=== PATIENT | female | born 1940 | race Two or more races ===

== ENCOUNTER 2016-05-11 09:31 | Inpatient (IN) | payer MEDICARE, OTHER ==
[~2016-05-11] VITALS: Ht 147.3 cm; Wt 67.6 kg
[2016-05-11 10:13] LABS: BASOPHILS # (AUTO) 0.1 /CMM (0.0-0.2); BASOPHILS % (AUTO) 1.2 % (0.0-2.0); DIFF TOTAL % 100 %; EOSINOPHILS # (AUTO) 0.1 /CMM (0.0-0.7); HEMATOCRIT 28 % (33-45); HEMOGLOBIN 9.4 g/dL (11.5-14.8); LYMPHOCYTES # (AUTO) 1.5 /CMM (0.8-4.8); LYMPHOCYTES % (AUTO) 16.1 % (20.0-44.0); MEAN CORPUSCULAR HEMOGLOBIN 38 PG (26.0-33.0); MEAN CORPUSCULAR HGB CONC 33 g/dl (31.0-36.0); MEAN CORPUSCULAR VOLUME 114 fL (82-100); MONOCYTES # (AUTO) 0.8 /CMM (0.1-1.30); MONOCYTES % (AUTO) 8.4 % (2.0-12.0); NEUTROPHILS # (AUTO) 6.8 /CMM (1.8-8.9); NEUTROPHILS % (AUTO) 73.3 % (43.0-81.0); PLATELET COUNT (AUTO) 120 /CMM (150-450); RED BLOOD CELL COUNT(AUTO) 2.48 MIL/uL (4.0-5.2); WHITE BLOOD COUNT (AUTO) 9.3 K/uL (4.3-11.0)
[2016-05-11 10:16] LABS: KETONES,URINE Negative (NEGATIVE); LEUKOCYTE ESTERASE ,URINE Small (NEGATIVE)
[2016-05-11 10:18] LABS: ANION GAP 15 (5-14); CALCIUM, SERUM 7.8 mg/dL (8.5-10.1); CARBON DIOXIDE 24 mmol/L (21-32); CHLORIDE 102 mmol/L (98-107); GLUCOSE 114 mg/dL (74-106); POTASSIUM 4.2 mmol/L (3.5-5.1); SODIUM SERUM 137 mmol/L (136-145); UREA NITROGEN, BLOOD 41 mg/dL (7-18)
[2016-05-11 10:18] LABS: ADD UA MICROSCOPIC YES
[2016-05-11 10:19] LABS: ADD URINE CULTURE NO
[2016-05-11 10:24] LABS: ALANINE AMINOTRANSFERASE 24 U/L (12-78); ALBUMIN 2.1 g/dL (3.4-5.0); ASPARTATE AMINOTRANSFERASE 61 U/L (15-37); BILIRUBIN,TOTAL 7.9 mg/dL (0.2-1.0); INDIRECT BILIRUBIN 2.9 mg/dL (0.0-1.1); TOTAL PROTEIN, SERUM 6.9 g/dL (6.4-8.2)
[2016-05-11 10:28] LABS: TROPONIN I < 0.017 ng/mL (0.00-0.056)
[2016-05-11 10:29] LABS: INR 1.57 (0.87-1.13); PROTHROMBIN TIME 16.5 SECS (9.5-12.7)
[2016-05-11] MEDS ORDERED: INSU100V13 SQ (11:07)
[2016-05-11] MEDS ORDERED: FLUO-120 PO (11:07)
[2016-05-11] MEDS ORDERED: METO25TA3 PO (11:07)
[2016-05-11] MEDS ORDERED: NIFE30TA2 PO (11:07)
[2016-05-11] MEDS ORDERED: METF500T4 PO (11:07)
[2016-05-11 12:10] LABS: BAND % (MANUAL) 2 % (0.0-5.0); EOSINOPHILS % (MANUAL) 2 % (0-4); LYMPHOCYTES % (MANUAL) 14 % (16-48)
[2016-05-11 12:11] LABS: ANISOCYTOSIS 2+; PLATELET ESTIMATE DECREASED
[2016-05-11 18:03] VITALS: BP 103/48
[2016-05-11 18:15] VITALS: BP 111/44
[2016-05-11 18:30] VITALS: BP 114/39
[2016-05-11 18:45] VITALS: BP 111/48
[2016-05-11] MEDS ORDERED: PHYTONADIONE 5 MG TABLET PO ONE (19:30)
[2016-05-11 20:00] VITALS: BP 110/40
[2016-05-11] MEDS ORDERED: Z GUARD REMEDY 2 OZ OINT TP PRN (20:00)
[2016-05-11] MEDS ORDERED: ZOLPIDEM TARTRATE 5 MG TABLET PO PRN (20:00)
[2016-05-11] MEDS ORDERED: MAGNESIUM HYDROXIDE 30 ML UDC PO PRN (20:00)
[2016-05-11] MEDS ORDERED: ACETAMINOPHEN 325 MG TABLET PO PRN (20:00)
[2016-05-11] MEDS ORDERED: ONDANSETRON HCL/PF 4 MG/2 ML VIAL IVP PRN (20:00)
[2016-05-11] MEDS ORDERED: MAG HYDROX/AL HYDROX/SIMETH 30 ML UDC PO PRN (20:00)
[2016-05-11] MEDS ORDERED: DEXTROSE 50%-WATER 50 ML DISP.SYRIN IV PRN (20:00)
[2016-05-11] MEDS ORDERED: HYDROCODONE/APAP 5/325MG 1 EACH TABLET PO PRN (20:00)
[2016-05-11] MEDS: BLOOD SUGAR DIAGNOSTIC 1 EACH STRIP VI SCH (21:30)
[2016-05-11] MEDS: INSULIN DETEMIR 100 UNIT/ML CARTRIDGE SQ SCH (22:00)
[2016-05-11] MEDS: FUROSEMIDE 40 MG/4 ML VIAL IV SCH (22:44)
[2016-05-11] MEDS: CEFTRIAXONE 1 G in IV D5W 50 ML IV SCH (22:45)
[2016-05-11] MEDS ORDERED: IV NS 0.9% 250 ML IV ONE (22:56)
[2016-05-11] MEDS ORDERED: SECONDARY IV SET 1 EA INFUS.SET MC ONE (22:57)
[2016-05-11] MEDS ORDERED: IV SET PRIMARY PUMP SET 1 EA INFUS.SET MC ONE (22:57)
[2016-05-12] VITALS: BP 134/49
[2016-05-12 04:00] VITALS: BP 107/52
[2016-05-12] MEDS: BLOOD SUGAR DIAGNOSTIC 1 EACH STRIP VI SCH ×4 (05:47→21:51)
[2016-05-12 07:11] VITALS: BP 123/51
[2016-05-12 07:31] LABS: DIFF TOTAL % 100 %; EOSINOPHILS % (AUTO) 0.5 % (0.0-6.0); HEMATOCRIT 23 % (33-45); HEMOGLOBIN 8.2 g/dL (11.5-14.8); MEAN CORPUSCULAR HEMOGLOBIN 42 PG (26.0-33.0); MEAN CORPUSCULAR HGB CONC 36 g/dl (31.0-36.0); MEAN CORPUSCULAR VOLUME 117 fL (82-100); MONOCYTES # (AUTO) 0.8 /CMM (0.1-1.30); MONOCYTES % (AUTO) 10.3 % (2.0-12.0); NEUTROPHILS # (AUTO) 5.5 /CMM (1.8-8.9); NEUTROPHILS % (AUTO) 75.2 % (43.0-81.0); PLATELET COUNT (AUTO) 88 /CMM (150-450); WHITE BLOOD COUNT (AUTO) 7.3 K/uL (4.3-11.0)
[2016-05-12 07:34] LABS: RED BLOOD CELL COUNT(AUTO) 1.97 MIL/uL (4.0-5.2)
[2016-05-12 07:37] LABS: INR 1.67 (0.87-1.13); PROTHROMBIN TIME 18.1 SECS (9.5-12.7)
[2016-05-12 07:54] LABS: CALCIUM, SERUM 7.4 mg/dL (8.5-10.1); CREATININE 1.7 mg/dL (0.6-1.3); PHOSPHORUS 4.2 mg/dL (2.5-4.9); POTASSIUM 3.6 mmol/L (3.5-5.1)
[2016-05-12] MEDS: FLUOXETINE HCL 20 MG CAPSULE PO SCH (08:07)
[2016-05-12] MEDS: FUROSEMIDE 40 MG/4 ML VIAL IV SCH (08:07)
[2016-05-12] MEDS: PANTOPRAZOLE 40 MG TABLET.DR PO SCH (08:07)
[2016-05-12 09:02] LABS: BAND % (MANUAL) 4 % (0.0-5.0); LYMPHOCYTES % (MANUAL) 12 % (16-48)
[2016-05-12 09:03] LABS: ANISOCYTOSIS 3+; PLATELET ESTIMATE DECREASED
[2016-05-12] MEDS: INSULIN REGULAR, HUMAN 100 UNIT/ML 3 ML VIAL SQ PRN ×3 (11:59→21:57)
[2016-05-12 12:00] VITALS: BP 125/55
[2016-05-12] MEDS ORDERED: SECONDARY IV SET 1 EA INFUS.SET MC ONE (12:58)
[2016-05-12] MEDS: Magnesium 1GM/D5W 100ML PREMIX 100 ML IV SCH ×2 (13:02→14:08)
[2016-05-12 16:00] VITALS: BP 106/49
[2016-05-12 20:00] VITALS: BP 123/56
[2016-05-12] MEDS: INSULIN DETEMIR 100 UNIT/ML CARTRIDGE SQ SCH (21:56)
[2016-05-12] MEDS: CEFTRIAXONE 1 G in IV D5W 50 ML IV SCH (22:01)
[2016-05-13] VITALS: BP 113/50
[2016-05-13 04:00] VITALS: BP 117/57
[2016-05-13] MEDS: BLOOD SUGAR DIAGNOSTIC 1 EACH STRIP VI SCH ×4 (06:41→21:56)
[2016-05-13] MEDS: INSULIN REGULAR, HUMAN 100 UNIT/ML 3 ML VIAL SQ PRN (06:43)
[2016-05-13 07:00] VITALS: BP 122/52
[2016-05-13 07:16] LABS: CALCIUM, SERUM 7.3 mg/dL (8.5-10.1); CREATININE 1.1 mg/dL (0.6-1.3); POTASSIUM 3.4 mmol/L (3.5-5.1)
[2016-05-13] MEDS: FLUOXETINE HCL 20 MG CAPSULE PO SCH (09:41)
[2016-05-13] MEDS: FUROSEMIDE 40 MG/4 ML VIAL IV SCH (09:41)
[2016-05-13] MEDS: PANTOPRAZOLE 40 MG TABLET.DR PO SCH (09:42)
[2016-05-13] MEDS ORDERED: POTASSIUM CHLORIDE 20 MEQ TAB.PRT.SR PO ONE (10:45)
[2016-05-13 11:39] LABS: BASOPHILS % (AUTO) 0.5 % (0.0-2.0); DIFF TOTAL % 100 %; EOSINOPHILS % (AUTO) 0.7 % (0.0-6.0); HEMATOCRIT 27 % (33-45); HEMOGLOBIN 9.3 g/dL (11.5-14.8); LYMPHOCYTES % (AUTO) 15.8 % (20.0-44.0); MEAN CORPUSCULAR HEMOGLOBIN 39 PG (26.0-33.0); MEAN CORPUSCULAR HGB CONC 34 g/dl (31.0-36.0); MEAN CORPUSCULAR VOLUME 114 fL (82-100); MONOCYTES # (AUTO) 0.6 /CMM (0.1-1.30); MONOCYTES % (AUTO) 10.1 % (2.0-12.0); NEUTROPHILS # (AUTO) 4.6 /CMM (1.8-8.9); NEUTROPHILS % (AUTO) 72.9 % (43.0-81.0); PLATELET COUNT (AUTO) 86 /CMM (150-450); WHITE BLOOD COUNT (AUTO) 6.3 K/uL (4.3-11.0)
[2016-05-13 11:51] LABS: CALCIUM, SERUM 7.4 mg/dL (8.5-10.1); CREATININE 1.2 mg/dL (0.6-1.3); PHOSPHORUS 2.8 mg/dL (2.5-4.9)
[2016-05-13 12:00] LABS: POTASSIUM 2.7 mmol/L (3.5-5.1)
[2016-05-13] MEDS: Magnesium 1GM/D5W 100ML PREMIX 100 ML IV SCH ×2 (13:42→15:12)
[2016-05-13 13:59] LABS: ANISOCYTOSIS 2+; EOSINOPHILS % (MANUAL) 1 % (0-4); LYMPHOCYTES % (MANUAL) 6 % (16-48); PLATELET ESTIMATE DECREASED
[2016-05-13 16:00] VITALS: BP 136/61
[2016-05-13 20:00] VITALS: BP 133/62
[2016-05-13] MEDS: CEFTRIAXONE 1 G in IV D5W 50 ML IV SCH (20:53)
[2016-05-13] MEDS: INSULIN DETEMIR 100 UNIT/ML CARTRIDGE SQ SCH (22:02)
[2016-05-13] MEDS: *INSULIN REGULAR(HUMULIN R)HUM 100 UNIT/ML VIAL SQ PRN (22:04)
[2016-05-14] VITALS: BP 131/57
[2016-05-14] MEDS: BLOOD SUGAR DIAGNOSTIC 1 EACH STRIP VI SCH ×4 (06:31→21:27)
[2016-05-14 08:00] VITALS: BP 125/60
[2016-05-14 08:35] LABS: BASOPHILS % (AUTO) 0.4 % (0.0-2.0); DIFF TOTAL % 100 %; EOSINOPHILS # (AUTO) 0.1 /CMM (0.0-0.7); EOSINOPHILS % (AUTO) 1.2 % (0.0-6.0); HEMATOCRIT 26 % (33-45); HEMOGLOBIN 8.7 g/dL (11.5-14.8); LYMPHOCYTES % (AUTO) 14.8 % (20.0-44.0); MEAN CORPUSCULAR HEMOGLOBIN 39 PG (26.0-33.0); MEAN CORPUSCULAR HGB CONC 34 g/dl (31.0-36.0); MEAN CORPUSCULAR VOLUME 114 fL (82-100); MONOCYTES # (AUTO) 0.8 /CMM (0.1-1.30); MONOCYTES % (AUTO) 12.2 % (2.0-12.0); NEUTROPHILS # (AUTO) 4.7 /CMM (1.8-8.9); NEUTROPHILS % (AUTO) 71.4 % (43.0-81.0); PLATELET COUNT (AUTO) 64 /CMM (150-450); RED BLOOD CELL COUNT(AUTO) 2.23 MIL/uL (4.0-5.2); WHITE BLOOD COUNT (AUTO) 6.7 K/uL (4.3-11.0)
[2016-05-14 08:42] LABS: CALCIUM, SERUM 6.8 mg/dL (8.5-10.1); CREATININE 0.9 mg/dL (0.6-1.3); PHOSPHORUS 2.4 mg/dL (2.5-4.9)
[2016-05-14 08:50] LABS: POTASSIUM 2.8 mmol/L (3.5-5.1)
[2016-05-14] MEDS: PANTOPRAZOLE 40 MG TABLET.DR PO SCH (10:26)
[2016-05-14] MEDS: FUROSEMIDE 40 MG/4 ML VIAL IV SCH (10:26)
[2016-05-14] MEDS: FLUOXETINE HCL 20 MG CAPSULE PO SCH (10:26)
[2016-05-14] MEDS ORDERED: POTASSIUM CHLORIDE 20 MEQ TAB.PRT.SR PO ONE (10:30)
[2016-05-14] MEDS ORDERED: SECONDARY IV SET 1 EA INFUS.SET MC ONE (10:36)
[2016-05-14] MEDS: POTASSIUM CL. PREMIX PERIPHER. 50 ML IV SCH ×4 (10:42→15:11)
[2016-05-14] MEDS: INSULIN REGULAR, HUMAN 100 UNIT/ML 3 ML VIAL SQ PRN (12:21)
[2016-05-14] MEDS ORDERED: NEUTRA PHOS 1 POWD.PACKET PO ONE (15:30)
[2016-05-14 16:00] VITALS: BP 134/64
[2016-05-14] MEDS: Magnesium 1GM/D5W 100ML PREMIX 100 ML IV SCH ×2 (17:35→18:55)
[2016-05-14 20:00] VITALS: BP 132/65
[2016-05-14 21:24] VITALS: BP 166/84
[2016-05-14] MEDS: CEFTRIAXONE 1 G in IV D5W 50 ML IV SCH (21:26)
[2016-05-14] MEDS: INSULIN DETEMIR 100 UNIT/ML CARTRIDGE SQ SCH (21:31)
[2016-05-14] MEDS: *INSULIN REGULAR(HUMULIN R)HUM 100 UNIT/ML VIAL SQ PRN (21:36)
[2016-05-15 04:00] VITALS: BP 130/84
[2016-05-15] MEDS: PANTOPRAZOLE 40 MG TABLET.DR PO SCH ×2 (06:54→10:15)
[2016-05-15] MEDS: BLOOD SUGAR DIAGNOSTIC 1 EACH STRIP VI SCH ×4 (06:54→22:09)
[2016-05-15 07:40] LABS: CALCIUM, SERUM 6.7 mg/dL (8.5-10.1); CREATININE 0.8 mg/dL (0.6-1.3); POTASSIUM 3.6 mmol/L (3.5-5.1)
[2016-05-15 08:42] VITALS: BP 134/62
[2016-05-15] MEDS: FLUOXETINE HCL 20 MG CAPSULE PO SCH (09:00)
[2016-05-15] MEDS: FUROSEMIDE 40 MG/4 ML VIAL IV SCH (10:26)
[2016-05-15] MEDS: NIFEdipine XL (30MG) 30 MG TAB PO SCH (14:00)
[2016-05-15 17:06] VITALS: BP 123/56
[2016-05-15] MEDS: INSULIN REGULAR, HUMAN 100 UNIT/ML 3 ML VIAL SQ PRN (18:18)
[2016-05-15 20:00] VITALS: BP 122/69
[2016-05-15] MEDS: CEFTRIAXONE 1 G in IV D5W 50 ML IV SCH (22:09)
[2016-05-15] MEDS: INSULIN DETEMIR 100 UNIT/ML CARTRIDGE SQ SCH (22:13)
[2016-05-15] MEDS: *INSULIN REGULAR(HUMULIN R)HUM 100 UNIT/ML VIAL SQ PRN (22:14)
[2016-05-16 04:00] VITALS: BP 125/69
[2016-05-16] MEDS: BLOOD SUGAR DIAGNOSTIC 1 EACH STRIP VI SCH ×2 (06:57→12:28)
[2016-05-16 07:30] LABS: BASOPHILS % (AUTO) 0.3 % (0.0-2.0); DIFF TOTAL % 100 %; EOSINOPHILS # (AUTO) 0.3 /CMM (0.0-0.7); EOSINOPHILS % (AUTO) 3.7 % (0.0-6.0); HEMATOCRIT 24 % (33-45); HEMOGLOBIN 8.5 g/dL (11.5-14.8); LYMPHOCYTES # (AUTO) 1.3 /CMM (0.8-4.8); LYMPHOCYTES % (AUTO) 18.2 % (20.0-44.0); MEAN CORPUSCULAR HEMOGLOBIN 41 PG (26.0-33.0); MEAN CORPUSCULAR HGB CONC 35 g/dl (31.0-36.0); MEAN CORPUSCULAR VOLUME 117 fL (82-100); NEUTROPHILS # (AUTO) 4.7 /CMM (1.8-8.9); NEUTROPHILS % (AUTO) 63.8 % (43.0-81.0); PLATELET COUNT (AUTO) 70 /CMM (150-450); RED BLOOD CELL COUNT(AUTO) 2.07 MIL/uL (4.0-5.2); WHITE BLOOD COUNT (AUTO) 7.3 K/uL (4.3-11.0)
[2016-05-16 07:36] LABS: CALCIUM, SERUM 6.7 mg/dL (8.5-10.1); CREATININE 0.8 mg/dL (0.6-1.3); POTASSIUM 3.5 mmol/L (3.5-5.1)
[2016-05-16 08:00] VITALS: BP 111/52
[2016-05-16] MEDS: FUROSEMIDE 40 MG/4 ML VIAL IV SCH (09:35)
[2016-05-16] MEDS: FLUOXETINE HCL 20 MG CAPSULE PO SCH (09:35)
[2016-05-16] MEDS: NIFEdipine XL (30MG) 30 MG TAB PO SCH (09:36)
[2016-05-16 09:39] LABS: EOSINOPHILS % (MANUAL) 3 % (0-4); LYMPHOCYTES % (MANUAL) 5 % (16-48)
[2016-05-16 09:47] LABS: ANISOCYTOSIS 2+; PLATELET ESTIMATE DECREASED
[2016-05-16 16:00] VITALS: BP 116/46
[2016-05-16 16:40] VITALS: BP 116/56
== END 2016-05-16 17:14 | disposition home or self-care (01) | DRG 432 ==
LOC: ER 09:36 → ICU 17:43 → TELE 19:54 → MED 05-14 12:46
PROVIDERS: ADMIT Internal Medicine; ATTEND Internal Medicine
PROC: 0W9G3ZZ Drainage of Peritoneal Cavity, Percutaneous Approach (ICD-10-PCS; principal; 2016-05-12)
DX: K74.60 Unspecified cirrhosis of liver (principal); N17.0 Acute kidney failure with tubular necrosis; I13.0 Hypertensive heart and chronic kidney disease with heart failure and stage 1 through stage 4 chronic kidney disease, or unspecified chronic kidney disease; D68.9 Coagulation defect, unspecified; N39.0 Urinary tract infection, site not specified; K62.5 Hemorrhage of anus and rectum; R18.8 Other ascites; D68.4 Acquired coagulation factor deficiency; K76.6 Portal hypertension; E87.70 Fluid overload, unspecified; N18.9 Chronic kidney disease, unspecified; I50.9 Heart failure, unspecified; E11.9 Type 2 diabetes mellitus without complications; E87.6 Hypokalemia; F32.9 Major depressive disorder, single episode, unspecified; F41.9 Anxiety disorder, unspecified; R74.0 Nonspecific elevation of levels of transaminase and lactic acid dehydrogenase [LDH]; D69.59 Other secondary thrombocytopenia
CPT/HCPCS: 36415; 71010-TC; 71250-TC; 72192-TC; 74150-TC; 76705-TC; 76942-TC; 80048-TC; 80076-TC; 81000-TC; 82962-TC; 83690-TC; 83735-TC; 83880; 84100-TC; 84132-TC; 84484-TC; 85025-TC; 85610-TC; 85730-TC; 87081-TC; 87086-TC; 93307-TC; 97001-TC; A4606; J0696; J1815; J1940; J3475; J3480; J7050; J7060; Z7610